=== PATIENT | female | born 1990 ===

== ENCOUNTER 2023-12-06 06:28 | Day surgery (SDC) | payer BC, SELFPAY ==
[2023-12-06] VITALS (9 sets, daily range): BP systolic 101–134; BP diastolic 57–78; BMI 19.8
[2023-12-06] MEDS: NORMOSOL-R 1000 IV (10:18)
[2023-12-06] MEDS: TRANSDERM-SCOP 1 PATCH TRANSDERM (10:39)
== END 2023-12-06 15:44 | disposition home or self-care (01) ==
LOC: SDS 06:28
PROVIDERS: ATTENDING PHYSICIAN Otolaryngology
DX: J32.9 Chronic sinusitis, unspecified (principal); J33.0 Polyp of nasal cavity; J33.8 Other polyp of sinus
CPT/HCPCS: 31237; 88304; 88311